=== PATIENT | male | born 1955 | race American Indian/Alaskan Native ===

== ENCOUNTER 2021-11-26 07:45 | Day surgery (SDC) | payer MEDICARE ==
[2021-11-21 11:21] LABS: Hematocrit 38.3 % (35.5-45.6); Hemoglobin 12.2 gm/dl (11.8-15.2); Mean Corpuscular HGB Conc 32 % (32-34); Mean Corpuscular Volume 97 fl (84-94); Platelet Count 293 K/mm3 (140-440); Red Blood Count 3.93 M/mm3 (3.65-5.03); Red Cell Distribution Width 14.3 % (13.2-15.2)
[2021-11-21 11:40] LABS: Calcium 9.4 mg/dL (8.4-10.2)
[2021-11-26] MEDS ORDERED: LACTATED RINGERS 1,000 ML ONE ×2 (08:01→12:33)
[2021-11-26] MEDS ORDERED: MAGNESIUM OXIDE 400 MG TAB PO NR (09:15)
[2021-11-26] MEDS ORDERED: ACETAMINOPHEN 325 MG TAB PO NR (09:15)
[2021-11-26] MEDS ORDERED: HYDROmorphone 1 MG/1 ML INJ IV PRN ×2 (09:16→10:00)
[2021-11-26] MEDS ORDERED: ONDANSETRON 4 MG/2 ML INJ IV PRN (09:16)
--- NOTE | 2021-11-26 09:17 | Anesthesia Day of Surgery ---
Anesthesia Day of Surgery - Day of Surgery Patient Examined: Yes Patient H&P Reviewed: Yes Patient is NPO: Yes
--- NOTE | 2021-11-26 09:18 | Anesthesia Consultation ---
Anesthesia Consult and Med Hx Date of service: 11/26/21 - Airway Anesthetic Teeth Evaluation: Edentulous (Upper) ROM Head & Neck: Adequate Mental/Hyoid Distance: Adequate Mallampati Class: Class II Intubation Access Assessment: Good - Pre-Operative Health Status ASA Pre-Surgery Classification: ASA2 Proposed Anesthetic Plan: General - Pulmonary Hx Smoking: Yes (OCC CIGAR) Hx Respiratory Symptoms: No (+2FS) Hx Sleep Apnea: No (HIGH ON PRESCREEN-SNORES) - Cardiovascular System Hx Hypertension: Yes - Central Nervous System Hx Back Pain: Yes Hx Psychiatric Problems: No - Gastrointestinal Hx Gastroesophageal Reflux Disease: No - Endocrine Hx Insulin Dependent Diabetes: Yes - Hematic Hx Anemia: Yes Hx Sickle Cell Disease: No - Other Systems Hx Alcohol Use: Yes (OCC. BEER) Hx Substance Use: No Hx Cancer: No
[2021-11-26] MEDS ORDERED: LACTATED RINGERS 1,000 ML IV SCH (09:30)
[2021-11-26] MEDS ORDERED: CELECOXIB 200 MG CAP PO NR (10:00)
[2021-11-26] MEDS ORDERED: LIDOCAINE (1%) 10 MG/1 ML VIAL 20 ML MDV ONE (10:23)
[2021-11-26] MEDS ORDERED: BUPIVACAINE/PF (0.5%) 5 MG/1 ML 30 ML VIAL INFILTRATI ONE ×2 (10:23→11:47)
[2021-11-26] MEDS ORDERED: propofoL 200 MG/20 ML VIAL IV ONE (10:26)
[2021-11-26] MEDS ORDERED: ROCURONIUM 50 MG/5 ML INJ IV ONE (10:26)
[2021-11-26] MEDS ORDERED: HYDROmorphone 1 MG/1 ML INJ ONE (10:26)
[2021-11-26] MEDS ORDERED: LIDOCAINE MPF (2%) 20 MG/1 ML VIAL 5 ML ONE (10:26)
[2021-11-26] MEDS ORDERED: ONDANSETRON 4 MG/2 ML INJ ONE (10:26)
[2021-11-26] MEDS ORDERED: ceFAZolin/STERILE WATER 2 GM/20 ML SYRINGE IV NR (11:00)
[2021-11-26] MEDS ORDERED: LIDOCAINE (1%) 10 MG/1 ML VIAL 20 ML MDV INFILTRATI ONE (11:50)
[2021-11-26] MEDS ORDERED: NEOSTIGMINE 10MG/10 ML INJ MDV ONE (12:35)
[2021-11-26] MEDS ORDERED: GLYCOPYRROLATE 0.4 MG/2 ML INJ ONE (12:35)
--- NOTE | 2021-11-26 12:50 | Short Stay Summary ---
Short Stay Documentation Date of service: 11/26/21 - History Principal diagnosis: RIGHT INGUINAL HERNIA H&P: obtained from office - Allergies and Medications Current Medications: Allergies No Known Allergies Allergy (Unverified 11/20/21 11:31) Home Medications Medication Instructions Recorded Confirmed Last Taken Type Amlodipine Besylate 10 mg PO DAILY 11/20/21 11/20/21 11/25/21 History Aspirin [Vazalore] 81 mg PO Q48HR 11/20/21 11/26/21 08/14/21 History Insulin Detemir (Nf) [Levemir 34 unit SQ QAM 11/20/21 11/20/21 11/25/21 History Flextouch (Nf)] Losartan-Hctz 100-25 mg Tab 100 mg PO DAILY 11/20/21 11/20/21 11/25/21 History Rosuvastatin Calcium 20 mg PO DAILY 11/20/21 11/20/21 11/25/21 History Sitagliptin Phos/Metformin HCl 2 tab PO QDAY 11/20/21 11/20/21 11/25/21 History [Janumet XR 50-1,000 mg] Vitamin B-12 1 tab PO DAILY 11/20/21 11/20/21 11/25/21 History carvediloL [Coreg] 12.5 mg PO BID 11/20/21 11/26/21 11/26/21 06:00 History Active Medications Acetaminophen (Acetaminophen 325 Mg Tab) 650 mg PO ONCE NR Stop: 11/26/21 13:00 Last Admin: 11/26/21 09:50 Dose: 650 mg Cefazolin Sodium (Cefazolin/Sterile Water 2 Gm/20 Ml Syringe) 2 gm IV PREOP NR Stop: 11/26/21 20:00 Celecoxib (Celecoxib 200 Mg Cap) 200 mg PO PREOP NR Stop: 11/26/21 13:00 Last Admin: 11/26/21 09:50 Dose: 200 mg Hydromorphone HCl (Hydromorphone 1 Mg/1 Ml Inj) 0.25 mg IV Q10MIN PRN PRN Reason: Pain, Moderate (4-6) Stop: 11/26/21 23:00 Hydromorphone HCl (Hydromorphone 1 Mg/1 Ml Inj) 0.5 mg IV Q10MIN PRN PRN Reason: Pain , Severe (7-10) Stop: 11/26/21 23:00 Lactated Ringer's (Lactated Ringers) 1,000 mls @ 100 mls/hr IV DIRECT JACI Last Admin: 11/26/21 08:20 Dose: 100 mls/hr Magnesium Oxide (Magnesium Oxide 400 Mg Tab) 400 mg PO ONCE NR Stop: 11/26/21 13:00 Last Admin: 11/26/21 09:50 Dose: 400 mg Ondansetron HCl (Ondansetron 4 Mg/2 Ml Inj) 4 mg IV ONCE PRN PRN Reason: Nausea And Vomiting Stop: 11/26/21 13:00 - Brief post op/procedure progress note Date of procedure: 11/26/21 Pre-op diagnosis: right inguinal hernia Post-op diagnosis: same Procedure: robotic assisted right inguinal hernia repair with mesh, ilioinguinal nerve block Anesthesia: GETA, local Findings: right indirect hernia with cord lipoma Surgeon: GAY LOZANO Support Services Tech: JUSTINE BILLINGSLEY Estimated blood loss: minimal Pathology: list (cord lipoma) Specimen disposition: to lab Condition: stable - Hospital course Hospital course: Patient observed in PACU and discharged home in stable condition when criteria met - Disposition Condition at discharge: Good Short Stay Discharge Plan Activity: other (No heavy lifting x6) Diet: regular Wound: open to air, per your surgeon's advice Additional Instructions: See printed discharge paperwork Follow up with: FAUSTO PULIDO [Other] - 7 Days GAY LOZANO DO [Staff Physician] - 14 Days
--- NOTE | 2021-11-26 13:51 | Operative Report ---
Operative Report Operative Report: Date of procedure: 11/26/21 Pre-op diagnosis: right inguinal hernia Post-op diagnosis: same Procedure: robotic assisted right inguinal hernia repair with mesh, ilioinguinal nerve block Anesthesia: GETA, local Findings: right indirect hernia with cord lipoma Surgeon: GAY LOZANO Bullet Maker: JUSTINE BILLINGSLEY Estimated blood loss: minimal Pathology: list (cord lipoma) Specimen disposition: to lab Condition: stable Hospital course: Patient observed in PACU and discharged home in stable condition when criteria met HPI and indication: Patient is a 55-year-old male who was referred to the surgery clinic for a bulge in the right groin. He was found to have a reducible right inguinal hernia on physical exam. It was recommended that the hernia be repaired. I discussed all risk, benefits, alternatives to repair with the patient and questions were answered. I explained that if the hernia was found on the left side at the same time, this would be fixed as well. The patient was agreeable. Consent obtained for robotic assisted right inguinal hernia repair with mesh, possible right, possible open. Procedure in detail: Patient was identified in the preoperative area, take back to operating room placed on operative table in supine position. After anesthesia was induced both arms were tucked and all bony prominences padded appropriately. A June catheter was sterilely placed by the circulating nurse. The abdomen and b/l groins were then prepped and draped in usual sterile fashion and a timeout performed. Local anesthetic was infiltrated to skin at the intended incision sites. A supraumbilical incision was made through which a Veress needle was inserted. Veress needle positioning was confirmed using saline drop test and the abdomen insufflated to 15 mmHg. Once the abdomen was insufflated, the Veress needle was removed and a 5 mm Optiview trocar was placed as incision. The abdomen is inspected there was no underlying injury to any of the abdominal structures. Patient was placed in Trendelenburg and the pelvis examined. There were adhesions from the colon to the peritoneum in the right lower quadrant. No evidence of free fluid or acute infection. There was a right inguinal hernia and no obvious hernia on the left. At this point, an 8 mm right upper quadrant and left upper quadrant robotic trocars were then placed under direct visualization. The 5 mm supraumbilical trocar was removed and replaced with a 12 mm balloon trocar under direct visualization. A Ray-Nan was placed into the abdomen. The robot was then docked. A fenestrated bipolar was placed into arm #2 and a monopolar scissor in arm #1. The surgeon was then transferred to the console. First, I created a right sided preperitoneal flap. The peritoneum was scored approximately 5 to 6 cm from the hernia defect. The peritoneum was then incised from the midline to the ASIS. The preperitoneal flap was then developed in an avascular plane. I first defined the medial margin by dissecting to the pubic tubercle. The pubic tubercle was cleared of overlying fatty tissue using blunt dissection. I then created the lateral margin in a similar fashion. Great care was taken to avoid injury to any nerves. There was an indirect right inguinal hernia containing fat. The hernia sac was gently reduced using blunt dissection and transecting cremasteric fibers with electrocautery. During the dissection, the cord structures were identified and protected. The cord structures and vas deferens were visualized throughout the entire dissection. Once the hernia sac was completely reduced, the peritoneal flap was checked for hemostasis. Any additional cremasteric fibers that were were tenting up the peritoneum were divided. The cord lipoma was also reduced and divided. Hemostasis was carefully ensured. The hernia was repaired using a RIGHT large 3D max mesh. The mesh along with suture material was placed into the abdomen by the reference library assistant. The mesh was positioned into the preperitoneal flap in the usual fashion. The medial portion of the mesh was sutured to Luís's ligament using an interrupted 2-0 Vicryl stitch. The lateral aspect of the mesh was sutured to the anterior lateral abdominal wall using a 2-0 Vicryl interrupted stitch. The mesh was seen to lay flat in the pocket with excellent coverage. An 18 Austrian Angiocath was inserted through the right lower abdominal wall under direct visualization into the pocket. This was used to evacuate any preperitoneal air at the end of the case. The peritoneum was then reapproximated using 3-0 running V-Loc stitch. The entirety of the mesh was covered with peritoneum. The robot was then undocked and the surgeon scrubbed back in. The remainder of the case was performed laparoscopically. All sharp materials along with a Ray-Nan were removed from the abdomen under direct visualization. The cord lipoma was removed from the abdomen and sent as a specimen. The 12 mm port was removed and the fascia closed using a interrupted 0 Vicryl stitch. The abdomen was then slowly desufflated and the mesh was seen to lay flat in the preperitoneal space. The remaining trocars were removed. Skin incisions were once again infiltrated with local anesthetic. RIGHT ilioinguinal nerve block was also performed with 5 cc of local anesthetic. The skin incisions were approximated with 4-0 Monocryl subcuticular stitches and skin glue. The Angiocath was removed and any preperitoneal air evacuated At the end of the case all sponge, instrument, sharp counts were correct x2. Patient was awoken from anesthesia and June catheter removed. Both testicles were palpated in the scrotum in anatomic position. The patient was taken to PACU in stable condition.
[2021-11-26 15:46] VITALS: BP 145/72
== END 2021-11-26 14:50 | disposition home or self-care (01) ==
LOC: OR 07:45
PROVIDERS: ATTEND Surgery
DX: K40.90 Unilateral inguinal hernia, without obstruction or gangrene, not specified as recurrent (principal); I10 Essential (primary) hypertension; E11.9 Type 2 diabetes mellitus without complications; D64.9 Anemia, unspecified; E78.00 Pure hypercholesterolemia, unspecified; F17.210 Nicotine dependence, cigarettes, uncomplicated; Z79.82 Long term (current) use of aspirin; Z79.4 Long term (current) use of insulin; Z79.899 Other long term (current) drug therapy; Z98.890 Other specified postprocedural states; Z72.89 Other problems related to lifestyle; Z20.822 Contact with and (suspected) exposure to COVID-19
CPT/HCPCS: 36415; 49650; 80048; 82962; 85027; 88304; C1781; J0690; J1170; J1815; J2405; J2704; J2710; J3490; J7120; U0003